=== PATIENT | female | born 1965 | race Caucasian/White ===

== ENCOUNTER 2024-10-12 21:34 | Emergency (ER) | payer BC, OTHER ==
[~2024-10-12 21:34] MED LIST: DIAZ5TAB22 PO; PRED20TA PO
[2024-10-12 21:44] VITALS: BP 147/81; PULSE 99; RESP 15; TEMP 96.8; O2SAT 100
== END 2024-10-12 23:28 | disposition left against medical advice (07) ==
LOC: ER 21:35
DX: R51.9 Headache, unspecified (principal); X58.XXXA Exposure to other specified factors, initial encounter; Y93.89 Activity, other specified; Y92.89 Other specified places as the place of occurrence of the external cause; Y99.8 Other external cause status; Z53.21 Procedure and treatment not carried out due to patient leaving prior to being seen by health care provider